=== PATIENT | male | born 1985 | race Caucasian/White ===

== ENCOUNTER 2023-10-28 00:53 | Emergency (ER) | payer MEDICAID ==
[~2023-10-28] VITALS: Ht 172.7 cm; Wt 92.5 kg
[2023-10-28 00:56] VITALS: BP 114/67; PULSE 79; RESP 22; TEMP 97.8; O2SAT 98
[2023-10-28 01:15] VITALS: O2SAT 98
[2023-10-28] MEDS ORDERED: ALBUTEROL SULFATE/IPRATROPIU 3 ML SOL IH ONE (01:15)
[2023-10-28 01:19] VITALS: PULSE 74; RESP 18; O2SAT 94
[2023-10-28] MEDS ORDERED: LORazepam 1 MG TAB PO ONE (02:20)
[2023-10-28] MEDS ORDERED: ALBU0.0912 IH (03:16)
[2023-10-28] MEDS ORDERED: ATI.5 PO (03:16)
[2023-10-28] MEDS ORDERED: CEPH-588 PO (03:16)
== END 2023-10-28 03:25 | disposition home or self-care (01) ==
LOC: MED 00:53
DX: J45.909 Unspecified asthma, uncomplicated (principal); F41.9 Anxiety disorder, unspecified; R06.00 Dyspnea, unspecified; Z87.891 Personal history of nicotine dependence; Z71.6 Tobacco abuse counseling; Z79.899 Other long term (current) drug therapy; Z79.2 Long term (current) use of antibiotics
CPT/HCPCS: 71045; 94640; 99283; Q0092